=== PATIENT | male | born 1985 ===

== ENCOUNTER 2017-01-23 06:00 | Emergency (ER) | payer SELFPAY ==
[2017-01-23 06:00] VITALS: BMI 29.5
[2017-01-23 06:16] VITALS: TEMP 98.1
--- NOTE | 2017-01-23 06:16 | ED PDOC ---
Arrival/HPI - General Time Seen by Provider: 01/23/17 06:11 Historian: Patient - History of Present Illness Narrative History of Present Illness (Text): 01/23/17 06:15 Mars Bowen is a 32 year old male, with no significant past medical history , who presents to the Emergency department complaining of chest pain worsened with deep inspiration and swallowing for the past few days. Patient also reports lower back pain. Patient states he originally attributed symptoms to GERD and took antacids at home but denies any significant relief. Patient denies any fever, chills, shortness of breath, nausea, vomiting, diarrhea, urinary symptoms, back pain, neck pain, headache, dizziness, or any other complaints. Time/Duration: Other (few days) Symptom Onset: Gradual Symptom Course: Unchanged Activities at Onset: Rest, Light Context: Home Past Medical History - Provider Review Nursing Documentation Reviewed: Yes - Past Medical History Past Medical History: No Previous - Psychiatric Hx Depression: No Hx Emotional Abuse: No Hx Physical Abuse: No Hx Substance Use: No - Past Surgical History Past Surgical History: Non-Contributing - Anesthesia Hx Anesthesia: No - Suicidal Assessment Feels Threatened In Home Enviroment: No Family/Social History - Physician Review Nursing Documentation Reviewed: Yes Family/Social History: No Known Family HX Smoking Status: Never Smoked Hx Alcohol Use: Yes Hx Substance Use: No Allergies/Home Meds Allergies/Adverse Reactions: Allergies No Known Allergies Allergy (Verified 02/06/16 20:03) Home Medications: Home Meds Medication Instructions Recorded Confirmed No Known Home Med 02/06/16 02/06/16 Review of Systems - Physician Review All systems were reviewed & negative as marked: Yes - Review of Systems Constitutional: Normal. absent: Fevers Eyes: Normal ENT: Normal Respiratory: Normal. absent: SOB, Cough Cardiovascular: Chest Pain Gastrointestinal: Normal. absent: Abdominal Pain, Diarrhea, Nausea, Vomiting Genitourinary Male: Normal. absent: Dysuria, Frequency, Hematuria, Urinary Output Changes Musculoskeletal: Normal, Back Pain. absent: Neck Pain Skin: Normal. absent: Rash Neurological: Normal. absent: Headache, Dizziness Endocrine: Normal Hemo/Lymphatic: Normal Psychiatric: Normal Physical Exam Vital Signs Reviewed: Yes Vital Signs Temp Pulse Resp BP Pulse Ox 01/23/17 06:47 98.1 F 72 16 144/84 98 01/23/17 06:08 98.1 F 85 14 134/76 99 Temperature: Afebrile Blood Pressure: Normal Pulse: Regular Respiratory Rate: Normal Appearance: Positive for: Well-Appearing, Non-Toxic, Comfortable Pain Distress: None Mental Status: Positive for: Alert and Oriented X 3 - Systems Exam Head: Present: Atraumatic, Normocephalic Pupils: Present: PERRL Extroacular Muscles: Present: EOMI Conjunctiva: Present: Normal Mouth: Present: Moist Mucous Membranes Neck: Present: Normal Range of Motion Respiratory/Chest: Present: Clear to Auscultation, Good Air Exchange. No: Respiratory Distress, Accessory Muscle Use Cardiovascular: Present: Regular Rate and Rhythm, Normal S1, S2. No: Murmurs Abdomen: Present: Normal Bowel Sounds. No: Tenderness, Distention, Peritoneal Signs Back: Present: Normal Inspection Upper Extremity: Present: Normal Inspection. No: Cyanosis, Edema Lower Extremity: Present: Normal Inspection. No: Edema Neurological: Present: GCS=15, CN II-XII Intact, Speech Normal Skin: Present: Warm, Dry, Normal Color. No: Rashes Psychiatric: Present: Alert, Oriented x 3, Normal Insight, Normal Concentration Medical Decision Making ED Course and Treatment: 01/23/17 06:15 Impression: 32 year old male complaining of chest pain and lower back pain for the past few days. Plan: -- EKG -- Chest X-ray -- Labs, cardiac enzymes, lipase, amylase -- Urinalysis -- IV fluids -- Protonix -- Zofran -- Reassess and disposition Progress Notes: Reviewed EKG, NSR at 86 bpm. Rightward axis. No acute changes. - Lab Interpretations Lab Results: 01/23/17 06:15 Lab Results 01/23/17 06:15: WBC 6.5, RBC 5.12, Hgb 15.9, Hct 45.1, MCV 88.1, MCH 31.1, MCHC 35.3, RDW 13.1, Plt Count 162, MPV 12.1 H, Gran % 55.0, Lymph % (Auto) 31.9, [place] % (Auto) 10.3 H, Eos % (Auto) 2.3, Baso % (Auto) 0.5, Gran # 3.56, Lymph # 2.1, [place] # 0.7 H, Eos # 0.2, Baso # 0.03 - RAD Interpretation Radiology Orders: 01/23/17 06:27 CHEST PORTABLE [RAD] Stat - EKG Interpretation Interpreted by ED Physician: Yes Type: 12 lead EKG - Medication Orders Current Medication Orders: Sodium Chloride (Sodium Chloride 0.9%) 1,000 mls @ 100 mls/hr IV .Q10H STA Stop: 01/23/17 16:25 Last Admin: 01/23/17 06:34 Dose: 100 mls/hr Discontinued Medications Pantoprazole Sodium 40 mg/ (Sodium Chloride) 100 mls @ 400 mls/hr IV STAT STA Stop: 01/23/17 06:40 Last Admin: 01/23/17 06:38 Dose: 400 mls/hr Ondansetron HCl (Zofran Inj) 4 mg IVP STAT STA Stop: 01/23/17 06:27 Last Admin: 01/23/17 06:39 Dose: 4 mg Pantoprazole Sodium (Protonix Inj) Confirm Administered Dose 40 mg .ROUTE .STK- MED ONE Stop: 01/23/17 06:38 Last Admin: 01/23/17 06:47 Dose: - Transfer of Care Patient signed out to Dr:: imm labs xray and dispo - Scribe Statement The provider has reviewed the documentation as recorded by the Scribpelon Ordoñez All medical record entries made by the Ingridibpelon were at my direction and personally dictated by me. I have reviewed the chart and agree that the record accurately reflects my personal performance of the history, physical exam, medical decision making, and the department course for this patient. I have also personally directed, reviewed, and agree with the discharge instructions and disposition. Disposition/Present on Arrival - Present on Arrival Any Indicators Present on Arrival: No History of DVT/PE: No History of Uncontrolled Diabetes: No Urinary Catheter: No History Surgical Site Infection Following: None - Disposition Have Diagnosis and Disposition been Completed?: Yes Diagnosis: Chest pain Disposition Time: 07:00 Condition: GOOD
[2017-01-23] MEDS ORDERED: Pantoprazole 40 MG in Sodium Chloride 0.9% 100 ML IV STA (06:26)
[2017-01-23] MEDS ORDERED: Sodium Chloride 0.9% 1,000 ML IV STA (06:26)
[2017-01-23 06:43] LABS: ADD MANUAL DIFF? NO
[2017-01-23 06:48] VITALS: RESP 16
[2017-01-23 06:48] LABS: BASO # 0.03 K/mm3 (0.0-2.0); BASO % 0.5 % (0.0-3.0); EOS # 0.2 (0.0-0.7); EOS % 2.3 % (1.5-5.0); GRAN # 3.56 (1.4-6.5); HEMATOCRIT 45.1 % (42.0-52.0); LYMPH # 2.1 (1.2-3.4); LYMPH % 31.9 % (22.0-35.0); MEAN CELL VOLUME 88.1 fL (80.0-105.0); MEAN CORPUSCULAR HEMOGLOBIN 31.1 pg (25.0-35.0); MEAN CORPUSCULAR HGB CONC 35.3 g/dl (31.0-37.0); MEAN PLATELET VOLUME 12.1 fl (7.0-11.0); MONO # 0.7 (0.1-0.6); MONO % 10.3 % (1.0-6.0); PLATELET COUNT 162 10^3/uL (120.0-450.0); RED CELL DISTRIBUTION WIDTH 13.1 % (11.5-14.5); WHITE BLOOD COUNT 6.5 10^3/ul (4.5-11.0)
[2017-01-23 06:54] LABS: INR 0.94 (0.93-1.08); PARTIAL THROMBOPLASTIN TIME 28.9 Seconds (23.7-30.8)
[2017-01-23 07:00] LABS: ALB/GLOB RATIO 1.3 (1.1-1.8); ALKALINE PHOSPHATASE 55 U/L (38-133); ALT/SGPT 67 U/L (7-56); AMYLASE 62 U/L (35-125); AST/SGOT 33 U/L (15-59); BILIRUBIN,TOTAL 0.6 mg/dL (0.2-1.3); BLOOD UREA NITROGEN 17 mg/dL (7-21); CALCIUM 9.4 mg/dL (8.4-10.5); CARBON DIOXIDE 28 mmol/L (21-33); CHLORIDE 103 mmol/L (98-107); GFR AFRICAN-AMERICAN > 60; GLUCOSE,RANDOM 121 mg/dL (70-110); LIPASE 75 U/L (23-300); POTASSIUM 4.3 mmol/L (3.6-5.0); SODIUM 141 mmol/L (132-148); TOTAL PROTEIN 7.6 g/dL (5.8-8.3)
--- NOTE | 2017-01-23 07:04 | ED PDOC ---
Physical Exam Vital Signs Temp Pulse Resp BP Pulse Ox 01/23/17 08:00 79 16 135/78 99 01/23/17 06:47 98.1 F 72 16 144/84 98 01/23/17 06:08 98.1 F 85 14 134/76 99 Medical Decision Making ED Course and Treatment: 01/23/17 07:00 Case signed out to me by Dr. Hitchcock pending labs, xray, and final disposition. Chest X-ray Client Executive: Chris De Jesus MD IMPRESSION: No active disease 01/23/17 08:43 Patient is in no acute distress. Cardiac enzymes negative after this pain of 3 days. Will discharge home, f/u PMD, return to ER for worsening pain, dyspnea, or any other problem. - Lab Interpretations Lab Results: 01/23/17 06:15 01/23/17 06:15 Lab Results 01/23/17 06:15: Sodium 141, Potassium 4.3, Chloride 103, Carbon Dioxide 28, Anion Gap 14, BUN 17, Creatinine 1.0, Est GFR ( Amer) > 60, Est GFR (Non- Af Amer) > 60, Random Glucose 121 H, Calcium 9.4, Total Bilirubin 0.6, AST 33, ALT 67 H, Alkaline Phosphatase 55, Lactate Dehydrogenase 491, Total Creatine Kinase 216, Troponin I 0.02, Total Protein 7.6, Albumin 4.3, Globulin 3.4, Albumin/Globulin Ratio 1.3, Amylase 62, Lipase 75 01/23/17 06:15: PT 10.2, INR 0.94, APTT 28.9 01/23/17 06:15: WBC 6.5, RBC 5.12, Hgb 15.9, Hct 45.1, MCV 88.1, MCH 31.1, MCHC 35.3, RDW 13.1, Plt Count 162, MPV 12.1 H, Gran % 55.0, Lymph % (Auto) 31.9, [place] % (Auto) 10.3 H, Eos % (Auto) 2.3, Baso % (Auto) 0.5, Gran # 3.56, Lymph # 2.1, [place] # 0.7 H, Eos # 0.2, Baso # 0.03 - RAD Interpretation Radiology Orders: 01/23/17 06:27 CHEST PORTABLE [RAD] Stat - Medication Orders Current Medication Orders: Sodium Chloride (Sodium Chloride 0.9%) 1,000 mls @ 100 mls/hr IV .Q10H STA Stop: 01/23/17 16:25 Last Admin: 01/23/17 06:34 Dose: 100 mls/hr Discontinued Medications Pantoprazole Sodium 40 mg/ (Sodium Chloride) 100 mls @ 400 mls/hr IV STAT STA Stop: 01/23/17 06:40 Last Admin: 01/23/17 06:38 Dose: 400 mls/hr Ondansetron HCl (Zofran Inj) 4 mg IVP STAT STA Stop: 01/23/17 06:27 Last Admin: 01/23/17 06:39 Dose: 4 mg Pantoprazole Sodium (Protonix Inj) Confirm Administered Dose 40 mg .ROUTE .STK- MED ONE Stop: 01/23/17 06:38 Last Admin: 01/23/17 06:47 Dose: Disposition/Present on Arrival - Present on Arrival Any Indicators Present on Arrival: No History of DVT/PE: No History of Uncontrolled Diabetes: No Urinary Catheter: No History of Decub. Ulcer: No History Surgical Site Infection Following: None - Disposition Have Diagnosis and Disposition been Completed?: Yes Diagnosis: Chest pain Disposition: HOME/ ROUTINE Disposition Time: 08:43 Patient Plan: Discharge Patient Problems: Current Active Problems Problem Status Onset Chest pain Acute Condition: STABLE Discharge Instructions (ExitCare): Chest Pain (ED)
[2017-01-23 07:11] LABS: TROPONIN I 0.02 ng/mL
[2017-01-23 08:03] VITALS: BP 135/78; PULSE 79; O2SAT 99
--- NOTE | 2017-01-23 08:33 | RAD ---
PROCEDURE: CHEST RADIOGRAPH, 1 VIEW HISTORY: cp COMPARISON: None available. FINDINGS: LUNGS: Clear. PLEURA: No pneumothorax or pleural fluid seen. CARDIOVASCULAR: Normal. OSSEOUS STRUCTURES: No significant abnormalities. VISUALIZED UPPER ABDOMEN: Normal. OTHER FINDINGS: None. IMPRESSION: No active disease.
--- NOTE | 2017-01-23 10:46 | CARD ---
APPROVED REPORT EKG Measurement Heart [id number] <Conclusion> Normal sinus rhythm Rightward axis PRWP V 1 - 4. Probably lead positioning. WNL
== END 2017-01-23 08:54 | disposition home or self-care (01) ==
LOC: ED 06:00
DX: R07.9 Chest pain, unspecified (principal)
CPT/HCPCS: 71010; 80053; 82150; 82550; 83615; 83690; 84484; 85025; 85610; 85730; 93005; 96361; 96374; 96375; 99284; C9113; J2405; J7040